=== PATIENT | female | born 1970 | race Two or more races ===

== ENCOUNTER 2017-01-15 02:59 | Inpatient (IN) | payer MEDICAID ==
[~2017-01-15] VITALS: Ht 152.4 cm; Wt 89.6 kg
[2017-01-15 04:42] LABS: Basophils # (auto) 0 uL; Basophils % (auto) 0.5 % (0.0-2.0); Eosinophils # (auto) 0.1 uL; Eosinophils % (auto) 0.9 % (0.0-7.0); Hematocrit 40.4 % (36.0-46.0); Hemoglobin 13.9 g/dL (12.2-16.2); Lymphocytes # (auto) 2.6 uL; Mean Corpuscular Hemoglobin 30.7 pg (28.0-32.0); Mean Corpuscular Hgb Conc. 34.5 g/dL (32.0-36.0); Monocytes # (auto) 0.5 uL; Monocytes % (auto) 6.2 % (0.0-12.0); Neutrophils # (auto) 5.4 uL; Neutrophils % (auto) 62.4 % (37.0-80.0); Nucleated Red Blood Cells % 0.1 %; Platelet Count (auto) 291 10^3/uL (140-450); Red Blood Cells 4.54 10^6/uL (4.0-5.20); White Blood Cell 8.7 10^3/uL (4.4-10.8)
[2017-01-15 04:55] LABS: Urine Bacteria MOD /hpf (None Seen); Urine Blood 1+ /uL (Negative); Urine Mucus FEW (None Seen); Urine Specific Gravity 1.026 (1.001-1.035); Urine WBC 5 /hpf (0 - 5)
[2017-01-15 04:59] LABS: BUN/Creatinine Ratio 23.2; Calcium 8.9 mg/dL (8.5-10.1); Magnesium 2.5 mg/dL (1.6-2.6); Potassium 3.4 mmol/L (3.5-5.1); Total Protein 8.2 g/dL (6.4-8.2)
[2017-01-15] MEDS ORDERED: SODIUM CHLORIDE 0.9% 1,000 ML IVB ONE (07:22)
[2017-01-15] MEDS ORDERED: ONDANSETRON HCL 4 MG/2 ML VIAL IV ONE ×2 (07:30→10:45)
[2017-01-15] MEDS ORDERED: MORPHINE SULFATE 10 MG/ML INJ 1ML SDV IV ONE (07:30)
[2017-01-15 10:06] LABS: INR 1.01 (0.9-1.15); Partial Thromboplastin Time 28.2 sec (22.64-33.71)
[2017-01-15] MEDS ORDERED: NEOSTIGMINE 1 MG/ML INJ (10mg/10ML VIAL) IV ONE (10:34)
[2017-01-15] MEDS ORDERED: ETOMIDATE (2MG/ML) 20ML VIAL IV ONE (10:34)
[2017-01-15] MEDS ORDERED: SUCCINYLCHOLINE CHLORIDE 20 MG/ML 10ML VIAL IV ONE (10:34)
[2017-01-15] MEDS ORDERED: GLYCOPYRROLATE 0.2 MG/ML 1ML VIAL IV ONE (10:34)
[2017-01-15] MEDS ORDERED: ceFAZolin 1GM/50ML 100 ML IV ONE (10:35)
[2017-01-15] MEDS ORDERED: MEPERIDINE HCL (50 MG/ML) 1 ML VIAL ONE (10:41)
[2017-01-15] MEDS ORDERED: fentaNYL CITRATE 100 MCG/2 ML VL ONE (10:41)
[2017-01-15] MEDS ORDERED: MIDAZOLAM HCL 1MG/1ML-2 ML VIAL ONE (10:41)
[2017-01-15] MEDS ORDERED: hydrALAZINE HCL 20 MG/ML VL IV PRN (10:45)
[2017-01-15] MEDS ORDERED: KETOROLAC TROMETH 30 MG/ML 1ML VIAL IV ONE (10:45)
[2017-01-15] MEDS ORDERED: LABETALOL HCL 5 MG/ML 4ML SYRINGE IV PRN (10:45)
[2017-01-15] MEDS ORDERED: MIDAZOLAM HCL 1MG/1ML-2 ML VIAL IV PRN (10:45)
[2017-01-15] MEDS ORDERED: ePHEDrine SULFATE 50 MG/ML AMP IV PRN (10:45)
[2017-01-15] MEDS ORDERED: HYDROmorphone HCL 2 MG/ML VL IV PRN ×2 (10:45→12:30)
[2017-01-15] MEDS ORDERED: PROPOFOL 10 MG/ML 20 ML IV ONE (11:11)
[2017-01-15] MEDS ORDERED: DEXAMETHASONE SOD PHOS 10MG/1ML VIAL INJ ONE (11:11)
[2017-01-15] MEDS ORDERED: METOCLOPRAMIDE HCL 5MG/ml INJ 2ml VIAL ONE (11:24)
[2017-01-15] MEDS ORDERED: ROCURONIUM 10MG/ML 10ML VIAL IV ONE (11:24)
[2017-01-15] MEDS ORDERED: KETOROLAC TROMETH 30 MG/ML 1ML VIAL ONE (11:25)
[2017-01-15] MEDS ORDERED: PHENYLEPHRINE HCL 10 MG/ML VL ONE (11:31)
[2017-01-15] MEDS ORDERED: MORPHINE SULF INJ 2 MG/ML SYRINGE 1ML IV ONE (12:00)
[2017-01-15] MEDS ORDERED: ACETAMINOPHEN IV 100 ML IV ONE ×2 (12:30→14:30)
[2017-01-15] MEDS: ceFAZolin 1GM/50ML 50 ML IV SCH ×2 (12:30→20:24)
[2017-01-15] MEDS ORDERED: ONDANSETRON HCL 4 MG/2 ML VIAL IV PRN (12:30)
[2017-01-15 17:06] VITALS: BP 125/80
[2017-01-15] MEDS ORDERED: IBUP400T21 PO (17:36)
[2017-01-15] MEDS: LACTATED RINGER'S 1,000 ML IV SCH ×2 (19:00→20:46)
[2017-01-15 20:00] VITALS: BP 119/65
[2017-01-15 22:00] VITALS: BP 119/65
[2017-01-16] MEDS: LACTATED RINGER'S 1,000 ML IV SCH ×3 (04:21→22:19)
[2017-01-16] MEDS: ceFAZolin 1GM/50ML 50 ML IV SCH (04:28)
[2017-01-16 05:00] VITALS: BP 101/56
[2017-01-16 06:17] LABS: Basophils # (auto) 0 uL; Basophils % (auto) 0.2 % (0.0-2.0); Eosinophils # (auto) 0 uL; Hematocrit 37.6 % (36.0-46.0); Hemoglobin 12.2 g/dL (12.2-16.2); Lymphocytes # (auto) 1.2 uL; Lymphocytes % (auto) 10.2 % (10.0-50.0); Mean Corpuscular Hemoglobin 29.5 pg (28.0-32.0); Mean Corpuscular Hgb Conc. 32.4 g/dL (32.0-36.0); Monocytes # (auto) 0.6 uL; Monocytes % (auto) 5.2 % (0.0-12.0); Neutrophils % (auto) 84.4 % (37.0-80.0); Platelet Count (auto) 273 10^3/uL (140-450); Red Blood Cells 4.14 10^6/uL (4.0-5.20); Red Cell Distribution Width 13.8 % (11.8-14.3); White Blood Cell 11.8 10^3/uL (4.4-10.8)
[2017-01-16 07:09] LABS: BUN/Creatinine Ratio 23.3; Calcium 8.1 mg/dL (8.5-10.1); Potassium 3.5 mmol/L (3.5-5.1); Total Protein 6.7 g/dL (6.4-8.2)
[2017-01-16] MEDS ORDERED: HYDROcodone-ACET 5/325MG TAB PO PRN (08:30)
[2017-01-16] MEDS: KETOROLAC TROMETH 30 MG/ML 1ML VIAL IV PRN ×2 (08:53→18:45)
[2017-01-16 09:00] VITALS: BP 92/54
[2017-01-16] MEDS: SIMETHICONE 80 MG CHEWABLE TABLET PO SCH ×3 (11:50→22:18)
[2017-01-16 13:05] VITALS: BP 102/48
[2017-01-16 16:42] VITALS: BP 107/57
[2017-01-16 20:00] VITALS: BP 126/66
[2017-01-16 22:08] VITALS: BP 128/66
[2017-01-16] MEDS: HYDROcodone-ACET 5/325MG TAB PO PRN (22:26)
[2017-01-17] MEDS: LACTATED RINGER'S 1,000 ML IV SCH ×2 (04:16→12:16)
[2017-01-17 05:30] VITALS: BP 119/76
[2017-01-17] MEDS: SIMETHICONE 80 MG CHEWABLE TABLET PO SCH ×4 (05:53→21:47)
[2017-01-17] MEDS: KETOROLAC TROMETH 30 MG/ML 1ML VIAL IV PRN (06:01)
[2017-01-17 09:58] VITALS: BP 109/64
[2017-01-17] MEDS ORDERED: IBUPROFEN 800 MG TAB PO PRN (10:15)
[2017-01-17 13:00] VITALS: BP 122/62
[2017-01-17 16:25] VITALS: BP 112/59
[2017-01-17 20:00] VITALS: BP 114/73
[2017-01-17] MEDS: HYDROcodone-ACET 5/325MG TAB PO PRN (20:54)
[2017-01-17 21:49] VITALS: BP 114/73
[2017-01-18 04:59] VITALS: BP 122/74
[2017-01-18] MEDS: SIMETHICONE 80 MG CHEWABLE TABLET PO SCH ×2 (05:38→11:17)
[2017-01-18] MEDS: HYDROcodone-ACET 5/325MG TAB PO PRN (08:00)
[2017-01-18 09:43] VITALS: BP 120/77
[2017-01-18 12:13] VITALS: BP 102/53
== END 2017-01-18 16:24 | disposition home or self-care (01) | DRG 513 ==
LOC: ER 03:08 → CENTRAL 03:09
PROVIDERS: ADMIT Emergency Medicine; ATTEND Specialist
PROC: 0UT60ZZ Resection of Left Fallopian Tube, Open Approach (ICD-10-PCS; 2017-01-15)
PROC: 0UT10ZZ Resection of Left Ovary, Open Approach (ICD-10-PCS; principal; 2017-01-15 10:45)
DX: N83.512 Torsion of left ovary and ovarian pedicle (principal); E66.01 Morbid (severe) obesity due to excess calories; K76.0 Fatty (change of) liver, not elsewhere classified; K66.0 Peritoneal adhesions (postprocedural) (postinfection); N83.202 Unspecified ovarian cyst, left side; M54.5 Low back pain; Z68.38 Body mass index [BMI] 38.0-38.9, adult
CPT/HCPCS: 36415; 74176; 76830; 76856; 80053; 81001; 83690; 83735; 84702; 85025; 85610; 85730; 86850; 86900; 86901; 86920; 96361; 96374; 96375; J0131; J0330; J0690; J1100; J1885; J2250; J2405; J2704

== ENCOUNTER 2018-10-22 09:19 | Emergency (ER) | payer MEDICAID ==
[~2018-10-22] VITALS: Ht 147.3 cm; Wt 79.8 kg
[~2018-10-22 09:19] MED LIST: IBUP400T21 PO
[2018-10-22 09:55] LABS: Urine Bacteria FEW /hpf (None Seen); Urine Blood 1+ /uL (Negative); Urine Specific Gravity 1.005 (1.001-1.035); Urine WBC 10 /hpf (0 - 5)
[2018-10-22] MEDS ORDERED: SODIUM CHLORIDE 0.9% 1,000 ML IV ONE ×2 (10:04)
[2018-10-22] MEDS ORDERED: ONDANSETRON HCL 4 MG/2 ML VIAL IV ONE (10:15)
[2018-10-22] MEDS ORDERED: MORPHINE SULFATE 4 MG/ML SYR/VIAL IV ONE (10:15)
[2018-10-22] MEDS ORDERED: cefTRIAXone 1GM/50ML D5W 50 ML IV ONE (10:30)
[2018-10-22 10:31] LABS: Basophils # (auto) 0.1 uL; Basophils % (auto) 0.5 % (0.0-2.0); Eosinophils # (auto) 0 uL; Eosinophils % (auto) 0.1 % (0.0-7.0); Hematocrit 38.4 % (36.0-46.0); Lymphocytes % (auto) 17.2 % (10.0-50.0); Mean Corpuscular Hemoglobin 30.4 pg (28.0-32.0); Mean Corpuscular Hgb Conc. 33.9 g/dL (32.0-36.0); Mean Corpuscular Volume 89.7 fL (80.0-100.0); Monocytes # (auto) 1.2 uL; Neutrophils # (auto) 8.6 uL; Neutrophils % (auto) 72.2 % (37.0-80.0); Platelet Count (auto) 235 10^3/uL (140-450); Red Blood Cells 4.28 10^6/uL (4.0-5.20); Red Cell Distribution Width 15.1 % (11.8-14.3); White Blood Cell 11.9 10^3/uL (4.4-10.8)
[2018-10-22] MEDS ORDERED: DIGOXIN (250MCG/ML) 2 ML AMPULE IV ONE (10:45)
[2018-10-22 10:53] LABS: Albumin 3.3 g/dL (3.4-5.0); Calcium 8.9 mg/dL (8.5-10.1); Potassium 3.2 mmol/L (3.5-5.1)
[2018-10-22 10:56] LABS: Bilirubin, Total 1.3 mg/dL (0.2-1.0)
[2018-10-22 11:50] VITALS: BP 115/63
[2018-10-22] MEDS ORDERED: IBUPROFEN 800 MG TAB PO ONE (13:00)
== END 2018-10-22 16:37 | disposition home or self-care (01) ==
LOC: ER 09:19
DX: N12 Tubulo-interstitial nephritis, not specified as acute or chronic (principal); Z79.1 Long term (current) use of non-steroidal anti-inflammatories (NSAID)
CPT/HCPCS: 36415; 74176; 80053; 81001; 85025; 96365; 96375; 99284; J0696; J2270; J2405; J7030

== ENCOUNTER 2020-10-10 19:30 | Inpatient (IN) | payer MEDICAID ==
[~2020-10-10] VITALS: Ht 149.9 cm; Wt 85.0 kg
[~2020-10-10 19:30] MED LIST changes: -IBUP400T21 PO; +IBUP400T22 PO
[2020-10-10 21:03] LABS: Basophils # (auto) 0.1 10 ^3/uL (0-0.2); Basophils % (auto) 0.9 % (0.0-2.0); Eosinophils # (auto) 0.1 10 ^3/uL (0-0.8); Eosinophils % (auto) 0.6 % (0.0-7.0); Hematocrit 40.5 % (36.0-46.0); Hemoglobin 13.6 g/dL (12.2-16.2); Lymphocytes # (auto) 2.8 10 ^3/uL (0.4-5.4); Lymphocytes % (auto) 27.6 % (10.0-50.0); Mean Corpuscular Hemoglobin 28.8 pg (28.0-32.0); Mean Corpuscular Hgb Conc. 33.5 g/dL (32.0-36.0); Monocytes # (auto) 0.8 10 ^3/uL (0-1.3); Monocytes % (auto) 7.5 % (0.0-12.0); Neutrophils # (auto) 6.4 10 ^3/uL (1.6-8.6); Neutrophils % (auto) 63.4 % (37.0-80.0); Red Blood Cells 4.71 10^6/uL (4.0-5.20); Red Cell Distribution Width 14.2 % (11.8-14.3); White Blood Cell 10.1 10^3/uL (4.4-10.8)
[2020-10-10 21:18] LABS: Albumin 3.9 g/dL (3.4-5.0); BUN/Creatinine Ratio 23.4; Potassium 3.6 mmol/L (3.5-5.1)
[2020-10-10 21:21] LABS: Total Protein 8.2 g/dL (6.4-8.2)
[2020-10-10 21:40] LABS: Urine Bacteria MANY /hpf (None Seen); Urine Blood Negative /uL (Negative); Urine Mucus FEW (None Seen); Urine Specific Gravity 1.024 (1.001-1.035); Urine WBC 46 /hpf (0 - 5)
[2020-10-10] MEDS ORDERED: HYDROmorphone HCL 2 MG/ML VL IV ONE (21:45)
[2020-10-10] MEDS ORDERED: SODIUM CHLORIDE 0.9% 1,000 ML IVB ONE (21:45)
[2020-10-10] MEDS ORDERED: ONDANSETRON HCL 4 MG/2 ML VIAL IV ONE (21:45)
[2020-10-11] MEDS ORDERED: MORPHINE SULF INJ 2 MG/ML SYRINGE 1ML IV PRN ×2 (00:30→14:15)
[2020-10-11] MEDS ORDERED: ACETAMINOPHEN 650 MG RECT SUPP PR PRN (00:30)
[2020-10-11] MEDS ORDERED: NITROGLYCERIN 0.4 MG SL TAB SL PRN (00:30)
[2020-10-11] MEDS: D5W/SOD CHL 0.45% 1,000 ML IV SCH ×2 (01:13→13:50)
[2020-10-11] MEDS ORDERED: HYDROmorphone HCL 2 MG/ML VL IV ONE (01:15)
[2020-10-11 01:39] VITALS: BP 124/66
[2020-10-11] MEDS: cefTRIAXone 1GM/50ML D5W 50 ML IV SCH ×2 (02:19→21:56)
[2020-10-11] MEDS: ONDANSETRON HCL 4 MG/2 ML VIAL IV PRN ×2 (02:20→06:30)
[2020-10-11 03:19] VITALS: BP 124/66
[2020-10-11 05:00] VITALS: BP 118/65
[2020-10-11 08:49] VITALS: BP 124/74
[2020-10-11 08:50] LABS: Basophils # (auto) 0.1 10 ^3/uL (0-0.2); Basophils % (auto) 0.8 % (0.0-2.0); Eosinophils # (auto) 0 10 ^3/uL (0-0.8); Eosinophils % (auto) 0.1 % (0.0-7.0); Hematocrit 39.5 % (36.0-46.0); Hemoglobin 13.2 g/dL (12.2-16.2); Lymphocytes # (auto) 1.4 10 ^3/uL (0.4-5.4); Lymphocytes % (auto) 16.8 % (10.0-50.0); Mean Corpuscular Hemoglobin 28.9 pg (28.0-32.0); Mean Corpuscular Hgb Conc. 33.4 g/dL (32.0-36.0); Mean Corpuscular Volume 86.7 fL (80.0-100.0); Monocytes # (auto) 0.5 10 ^3/uL (0-1.3); Monocytes % (auto) 5.5 % (0.0-12.0); Neutrophils # (auto) 6.6 10 ^3/uL (1.6-8.6); Neutrophils % (auto) 76.8 % (37.0-80.0); Nucleated Red Blood Cells % 0.1 %; Red Blood Cells 4.55 10^6/uL (4.0-5.20); Red Cell Distribution Width 14.2 % (11.8-14.3); White Blood Cell 8.6 10^3/uL (4.4-10.8)
[2020-10-11 09:06] LABS: INR 1.03 (0.9-1.15); Partial Thromboplastin Time 27.7 sec (23.0-31.2)
[2020-10-11 09:08] LABS: Albumin 3.7 g/dL (3.4-5.0); BUN/Creatinine Ratio 18.9; Calcium 8.4 mg/dL (8.5-10.1); Potassium 3.7 mmol/L (3.5-5.1)
[2020-10-11 09:11] LABS: Total Protein 7.7 g/dL (6.4-8.2)
[2020-10-11] MEDS: MORPHINE SULF INJ 2 MG/ML SYRINGE 1ML IV PRN ×2 (09:24→20:11)
[2020-10-11] MEDS: ENOXAPARIN SOD 40 MG/0.4 ML SYRINGE SC SCH (09:24)
[2020-10-11] MEDS: FAMOTIDINE (10MG/ML) 2ML VL IV SCH (09:24)
[2020-10-11 12:58] VITALS: BP 110/64
[2020-10-11] MEDS ORDERED: fentaNYL CITRATE 100 MCG/2 ML VL ONE (13:29)
[2020-10-11] MEDS ORDERED: PROPOFOL 10 MG/ML 20 ML IV ONE (13:30)
[2020-10-11] MEDS ORDERED: MIDAZOLAM HCL 1MG/1ML-2 ML VIAL ONE (13:30)
[2020-10-11] MEDS ORDERED: DexAMETHasone SOD PHOS 10MG/1ML VIAL INJ ONE (13:30)
[2020-10-11] MEDS ORDERED: MEPERIDINE HCL (50 MG/ML) 1 ML VIAL ONE (13:30)
[2020-10-11] MEDS ORDERED: ROCURONIUM 10MG/ML 10ML VIAL IV ONE (13:50)
[2020-10-11] MEDS ORDERED: fentaNYL CITRATE 100 MCG/2 ML VL IV PRN (14:15)
[2020-10-11] MEDS ORDERED: ONDANSETRON HCL 4 MG/2 ML VIAL IV PRN ×2 (14:15→15:30)
[2020-10-11] MEDS ORDERED: HYDROmorphone HCL 2 MG/ML VL IV PRN ×2 (14:15→15:30)
[2020-10-11] MEDS ORDERED: LABETALOL HCL 5 MG/ML 4ML SYRINGE IV PRN (14:15)
[2020-10-11] MEDS ORDERED: MIDAZOLAM HCL 1MG/1ML-2 ML VIAL IV PRN (14:15)
[2020-10-11] MEDS ORDERED: hydrALAZINE HCL 20 MG/ML VL IV PRN (14:15)
[2020-10-11] MEDS ORDERED: POVIDONE IODINE 10 % TOPICAL OINT 30GM TOP ONE (14:38)
[2020-10-11] MEDS ORDERED: D5W/SOD CHL 0.45%/KCL 20MEQ 1,000 ML IV ONE (15:15)
[2020-10-11] MEDS: metroNIDAZOLE 500MG/100ML 100 ML IV SCH ×2 (17:00→21:59)
[2020-10-11 21:37] VITALS: BP 133/76
[2020-10-12] MEDS: D5W/SOD CHL 0.45% 1,000 ML IV SCH ×2 (03:10→16:30)
[2020-10-12 05:30] VITALS: BP 123/65
[2020-10-12 06:54] LABS: Basophils # (auto) 0 10 ^3/uL (0-0.2); Basophils % (auto) 0.1 % (0.0-2.0); Eosinophils # (auto) 0 10 ^3/uL (0-0.8); Hematocrit 35.9 % (36.0-46.0); Lymphocytes # (auto) 0.9 10 ^3/uL (0.4-5.4); Lymphocytes % (auto) 7.6 % (10.0-50.0); Mean Corpuscular Hgb Conc. 33.3 g/dL (32.0-36.0); Monocytes # (auto) 0.6 10 ^3/uL (0-1.3); Monocytes % (auto) 4.9 % (0.0-12.0); Neutrophils # (auto) 10.9 10 ^3/uL (1.6-8.6); Neutrophils % (auto) 87.4 % (37.0-80.0); Nucleated Red Blood Cells % 0.1 %; Red Blood Cells 4.13 10^6/uL (4.0-5.20); Red Cell Distribution Width 14.1 % (11.8-14.3); White Blood Cell 12.5 10^3/uL (4.4-10.8)
[2020-10-12] MEDS: metroNIDAZOLE 500MG/100ML 100 ML IV SCH ×3 (06:55→22:33)
[2020-10-12 07:15] LABS: Albumin 2.9 g/dL (3.4-5.0); BUN/Creatinine Ratio 16.7; Calcium 8.1 mg/dL (8.5-10.1); Potassium 3.7 mmol/L (3.5-5.1)
[2020-10-12 07:18] LABS: Bilirubin, Total 0.9 mg/dL (0.2-1.0)
[2020-10-12 09:00] VITALS: BP 113/62
[2020-10-12] MEDS: ENOXAPARIN SOD 40 MG/0.4 ML SYRINGE SC SCH (09:08)
[2020-10-12] MEDS: FAMOTIDINE (10MG/ML) 2ML VL IV SCH (09:08)
[2020-10-12] MEDS: MORPHINE SULF INJ 2 MG/ML SYRINGE 1ML IV PRN ×2 (11:31→18:04)
[2020-10-12 13:00] VITALS: BP 117/66
[2020-10-12 17:00] VITALS: BP 137/77
[2020-10-12] MEDS: cefTRIAXone 1GM/50ML D5W 50 ML IV SCH (21:16)
[2020-10-12 22:00] VITALS: BP 125/64
[2020-10-13] MEDS: MORPHINE SULF INJ 2 MG/ML SYRINGE 1ML IV PRN ×2 (00:02→21:09)
[2020-10-13] MEDS: D5W/SOD CHL 0.45% 1,000 ML IV SCH ×2 (03:31→19:10)
[2020-10-13 05:00] VITALS: BP 107/46
[2020-10-13 06:10] LABS: Basophils # (auto) 0.1 10 ^3/uL (0-0.2); Basophils % (auto) 0.6 % (0.0-2.0); Eosinophils # (auto) 0 10 ^3/uL (0-0.8); Eosinophils % (auto) 0.2 % (0.0-7.0); Hematocrit 35.3 % (36.0-46.0); Hemoglobin 11.9 g/dL (12.2-16.2); Lymphocytes # (auto) 2.3 10 ^3/uL (0.4-5.4); Lymphocytes % (auto) 20.4 % (10.0-50.0); Mean Corpuscular Hemoglobin 29.2 pg (28.0-32.0); Mean Corpuscular Hgb Conc. 33.7 g/dL (32.0-36.0); Mean Corpuscular Volume 86.5 fL (80.0-100.0); Monocytes # (auto) 0.9 10 ^3/uL (0-1.3); Monocytes % (auto) 7.9 % (0.0-12.0); Neutrophils % (auto) 70.9 % (37.0-80.0); Nucleated Red Blood Cells % 0.1 %; Red Blood Cells 4.08 10^6/uL (4.0-5.20); Red Cell Distribution Width 13.9 % (11.8-14.3); White Blood Cell 11.3 10^3/uL (4.4-10.8)
[2020-10-13 06:23] LABS: Potassium 3.4 mmol/L (3.5-5.1)
[2020-10-13] MEDS: metroNIDAZOLE 500MG/100ML 100 ML IV SCH ×3 (06:24→22:06)
[2020-10-13 06:33] LABS: Bilirubin, Total 0.7 mg/dL (0.2-1.0); Calcium 8.1 mg/dL (8.5-10.1); Total Protein 7.1 g/dL (6.4-8.2)
[2020-10-13 08:30] VITALS: BP 123/68
[2020-10-13] MEDS: ENOXAPARIN SOD 40 MG/0.4 ML SYRINGE SC SCH (10:12)
[2020-10-13] MEDS: FAMOTIDINE (10MG/ML) 2ML VL IV SCH (10:12)
[2020-10-13 12:47] VITALS: BP 119/70
[2020-10-13] MEDS ORDERED: POTASSIUM CHLORIDE 20 MEQ, LIDOCAINE 1% (LOCAL ANESTH.) 2 ML in SODIUM CHL 0.9% 100 ML IV ONE (15:45)
[2020-10-13] MEDS: THROAT LOZENGES(CEPASTAT) MT PRN ×2 (16:01→19:30)
[2020-10-13 17:25] VITALS: BP 131/73
[2020-10-13] MEDS: cefTRIAXone 1GM/50ML D5W 50 ML IV SCH (21:23)
[2020-10-13 22:00] VITALS: BP 112/73
[2020-10-14] MEDS: THROAT LOZENGES(CEPASTAT) MT PRN (02:30)
[2020-10-14] MEDS: MORPHINE SULF INJ 2 MG/ML SYRINGE 1ML IV PRN (04:15)
[2020-10-14 05:00] VITALS: BP 127/71
[2020-10-14] MEDS: metroNIDAZOLE 500MG/100ML 100 ML IV SCH (06:32)
[2020-10-14 06:40] LABS: Basophils # (auto) 0.1 10 ^3/uL (0-0.2); Basophils % (auto) 1.1 % (0.0-2.0); Eosinophils # (auto) 0.1 10 ^3/uL (0-0.8); Eosinophils % (auto) 0.6 % (0.0-7.0); Hematocrit 36.7 % (36.0-46.0); Hemoglobin 12.4 g/dL (12.2-16.2); Lymphocytes # (auto) 1.7 10 ^3/uL (0.4-5.4); Lymphocytes % (auto) 19.4 % (10.0-50.0); Mean Corpuscular Hemoglobin 29.2 pg (28.0-32.0); Mean Corpuscular Hgb Conc. 33.9 g/dL (32.0-36.0); Mean Corpuscular Volume 85.9 fL (80.0-100.0); Monocytes # (auto) 0.7 10 ^3/uL (0-1.3); Monocytes % (auto) 7.7 % (0.0-12.0); Neutrophils # (auto) 6.2 10 ^3/uL (1.6-8.6); Neutrophils % (auto) 71.2 % (37.0-80.0); Nucleated Red Blood Cells % 0.3 %; Red Blood Cells 4.27 10^6/uL (4.0-5.20); Red Cell Distribution Width 13.9 % (11.8-14.3); White Blood Cell 8.6 10^3/uL (4.4-10.8)
[2020-10-14 06:55] LABS: Potassium 3.1 mmol/L (3.5-5.1)
[2020-10-14 07:10] LABS: Albumin 3.1 g/dL (3.4-5.0); BUN/Creatinine Ratio 24.2; Bilirubin, Total 0.8 mg/dL (0.2-1.0); Calcium 8.2 mg/dL (8.5-10.1); Total Protein 7.5 g/dL (6.4-8.2)
[2020-10-14 09:00] VITALS: BP 133/71
[2020-10-14] MEDS: D5W/SOD CHL 0.45% 1,000 ML IV SCH (09:54)
[2020-10-14] MEDS: ENOXAPARIN SOD 40 MG/0.4 ML SYRINGE SC SCH (09:54)
[2020-10-14] MEDS: FAMOTIDINE (10MG/ML) 2ML VL IV SCH (09:54)
[2020-10-14 12:56] VITALS: BP 134/73
[2020-10-14] MEDS ORDERED: HYDROcodone-ACET 5/325MG TAB PO PRN (14:15)
[2020-10-14] MEDS ORDERED: KETOROLAC TROMETH 30 MG/ML 1ML VIAL IV PRN (14:15)
[2020-10-14 17:00] VITALS: BP 141/75
[2020-10-14 22:00] VITALS: BP 133/82
[2020-10-15 05:00] VITALS: BP 139/84
[2020-10-15 09:00] VITALS: BP 129/75
[2020-10-15] MEDS: ENOXAPARIN SOD 40 MG/0.4 ML SYRINGE SC SCH (09:36)
[2020-10-15] MEDS ORDERED: levoFLOXacin 500 MG TAB PO SCH (10:00)
[2020-10-15] MEDS ORDERED: OMEP20TA PO (11:50)
[2020-10-15] MEDS ORDERED: LEVO-28 PO (11:50)
[2020-10-15] MEDS ORDERED: IBUP600T27 PO (11:50)
[2020-10-15 12:36] VITALS: BP 129/75
[2020-10-15 12:39] VITALS: BP 131/75
== END 2020-10-15 14:30 | disposition home or self-care (01) | DRG 227 ==
LOC: ER 19:30 → TELE 10-11 00:28 → TELE-EAST 10-11 01:33 → EAST 10-14 15:55
PROVIDERS: ADMIT Nurse Practitioner Family; ATTEND Internal Medicine
PROC: 0D9670Z Drainage of Stomach with Drainage Device, Via Natural or Artificial Opening (ICD-10-PCS; 2020-10-11)
PROC: 0WQF0ZZ Repair Abdominal Wall, Open Approach (ICD-10-PCS; principal; 2020-10-11 13:34)
DX: K42.0 Umbilical hernia with obstruction, without gangrene (principal); E66.01 Morbid (severe) obesity due to excess calories; Z20.822 Contact with and (suspected) exposure to COVID-19; N39.0 Urinary tract infection, site not specified; K76.0 Fatty (change of) liver, not elsewhere classified; R16.0 Hepatomegaly, not elsewhere classified; I10 Essential (primary) hypertension; E87.6 Hypokalemia; N83.209 Unspecified ovarian cyst, unspecified side; B96.1 Klebsiella pneumoniae [K. pneumoniae] as the cause of diseases classified elsewhere; Z79.899 Other long term (current) drug therapy; Z68.34 Body mass index [BMI] 34.0-34.9, adult
CPT/HCPCS: 36415; 71045; 74176; 76705; 80053; 81001; 82150; 83036; 83690; 84443; 84702; 85025; 85610; 85730; 86850; 86900; 86901; 87086; 87088; 87186; 87426; 93005; 96361; 96374; 96375; 96376; G0378; J0696; J1100; J2001; J2250; J2405; J2704; J3490

== ENCOUNTER 2022-06-20 19:18 | Emergency (ER) | payer MEDICAID ==
[~2022-06-20] VITALS: Ht 147.3 cm; Wt 85.6 kg
[~2022-06-20 19:18] MED LIST changes: -IBUP400T22 PO; +IBUP600T27 PO; +LEVO-28 PO; +OMEP20TA PO
[2022-06-20 20:25] LABS: Basophils # (auto) 0.1 10 ^3/uL (0-0.2); Basophils % (auto) 0.6 % (0.0-2.0); Eosinophils # (auto) 0.1 10 ^3/uL (0-0.8); Eosinophils % (auto) 0.7 % (0.0-7.0); Hematocrit 40.1 % (36.0-46.0); Lymphocytes # (auto) 2.5 10 ^3/uL (0.4-5.4); Lymphocytes % (auto) 24.6 % (10.0-50.0); Mean Corpuscular Hemoglobin 29.4 pg (28.0-32.0); Mean Corpuscular Hgb Conc. 34.9 g/dL (32.0-36.0); Mean Corpuscular Volume 84.3 fL (80.0-100.0); Monocytes # (auto) 0.6 10 ^3/uL (0-1.3); Monocytes % (auto) 5.8 % (0.0-12.0); Neutrophils % (auto) 68.3 % (37.0-80.0); Nucleated Red Blood Cells % 0.2 %; Red Blood Cells 4.76 10^6/uL (4.0-5.20); Red Cell Distribution Width 14.3 % (11.8-14.3); White Blood Cell 10.2 10^3/uL (4.4-10.8)
[2022-06-20 20:45] LABS: Potassium 3.5 mmol/L (3.5-5.1)
[2022-06-20 20:49] LABS: Albumin 4.1 g/dL (3.4-5.0); Calcium 9.4 mg/dL (8.5-10.1)
[2022-06-20 20:55] LABS: Bilirubin, Total 1.8 mg/dL (0.2-1.0); Total Protein 8.4 g/dL (6.4-8.2)
[2022-06-21] MEDS ORDERED: OXYCODONE W/ ACETAMINOPHEN 5/325MG TABLET PO ONE (04:00)
[2022-06-21] MEDS ORDERED: ONDANSETRON ODT 4 MG TAB PO ONE (04:00)
[2022-06-21 06:10] VITALS: BP 141/66
== END 2022-06-21 06:38 | disposition home or self-care (01) ==
LOC: ER 19:18
DX: M79.602 Pain in left arm (principal); E86.0 Dehydration; R73.9 Hyperglycemia, unspecified; Z79.1 Long term (current) use of non-steroidal anti-inflammatories (NSAID); Z79.2 Long term (current) use of antibiotics; Z79.899 Other long term (current) drug therapy
CPT/HCPCS: 36415; 71045; 80053; 84484; 85025; 85379; 93005; 93971; 99285; Q0162